=== PATIENT | male | born 1985 | race Hispanic/Latino ===

== ENCOUNTER 2022-02-10 04:42 | Emergency (ER) | payer OTHER ==
[~2022-02-10] VITALS: Ht 162.6 cm; Wt 74.8 kg
[2022-02-10] MEDS ORDERED: ONDANSETRON HCL 4 MG ORAL DISINTEGRATING TAB PO ONE (05:15)
[2022-02-10] MEDS ORDERED: ONDANSETRON HCL 4 MG ORAL DISINTEGRATING TAB ONE (05:20)
[2022-02-10] MEDS ORDERED: TETANUS/DIPHTHERIA TOX ADULT 0.5 ML SYR IM ONE (07:00)
== END 2022-02-10 08:22 | disposition home or self-care (01) ==
LOC: ER 05:09
DX: S00.83XA Contusion of other part of head, initial encounter (principal); R11.2 Nausea with vomiting, unspecified; Y04.0XXA Assault by unarmed brawl or fight, initial encounter; Y92.89 Other specified places as the place of occurrence of the external cause
CPT/HCPCS: 70450; 70486; 72125; 99283; Q0162